=== PATIENT | female | born 1990 | race Hispanic/Latino ===

== ENCOUNTER 2020-02-14 14:09 | Emergency (ER) | payer OTHER ==
[2020-02-14 15:39] LABS: RAPID GROUP A STREP NEGATIVE (NEGATIVE)
[2020-02-14] MEDS ORDERED: NAPROXEN 500 MG TABLET ONE (16:29)
[2020-02-14] MEDS ORDERED: DIPHENHYDRAMINE HCL 25 MG CAPSULE ONE (16:30)
== END 2020-02-14 16:56 | disposition home or self-care (01) ==
LOC: EDH 14:09
DX: J06.9 Acute upper respiratory infection, unspecified (principal)
CPT/HCPCS: 81025; 87804 ×2; 87880; 99283; Q0163

== ENCOUNTER 2020-09-08 23:19 | Emergency (ER) | payer OTHER ==
[2020-09-08] MEDS ORDERED: SODIUM CHLORIDE 0.9% 1000ML 1,000 ML IV ONE (23:20)
[2020-09-08 23:56] LABS: APPEARANCE,URINE Clear (CLEAR); BILIRUBIN,URINE Negative (NEGATIVE); COLOR,URINE Yellow (YELLOW); GLUCOSE, URINE (UA) Negative (NEGATIVE); KETONES,URINE Negative (NEGATIVE); LEUKOCYTE ESTERASE ,URINE Negative (NEGATIVE); NITRATE,URINE Negative (NEGATIVE); OCCULT BLOOD,URINE Trace (NEGATIVE); PH,URINE 5.5 (5.0-8.0); PROTEIN,URINE Negative (NEGATIVE); UROBILINOGEN,URINE 0.2 mg/dL (0.2-1.0)
[2020-09-09 00:04] LABS: BACTERIA,URINE None Seen /HPF (None Seen); RBC,URINE 0-1 /HPF (0-1); SQUAMOUS EPITHELIAL CELL,UR Few /HPF (0-2); WBC,URINE None Seen /HPF (0-1)
[2020-09-09 00:14] LABS: HCG,QUAL RESULT NEGATIVE (NEGATIVE)
[2020-09-09] MEDS ORDERED: KETOROLAC TROMETHAMINE 30MG/ML ONE (00:42)
[2020-09-09] MEDS ORDERED: ONDANSETRON HCL 4 MG/2 ML VIAL ONE (00:42)
[2020-09-09 00:55] LABS: CREATININE 0.8 mg/dL (0.5-1.5); POTASSIUM 3.1 mmol/L (3.5-5.1)
[2020-09-09 01:00] LABS: ALBUMIN 3.3 g/dL (3.5-5.0); BILIRUBIN,TOTAL 0.3 mg/dL (0.2-1.0); TOTAL PROTEIN, SERUM 7.7 g/dL (6.0-8.3)
[2020-09-09 01:10] LABS: BASOPHILS % (AUTO) 0.1 % (0.0-5.0); EOSINOPHILS % (AUTO) 0.7 % (0.0-8.0); HEMATOCRIT 35.5 % (36-48); LYMPHOCYTES % (AUTO) 7.9 % (21.0-51.0); MEAN CORPUSCULAR HEMOGLOBIN 30.5 pg (27.0-33.0); MEAN CORPUSCULAR HGB CONC 35.5 g/dL (32.0-36.0); MONOCYTES % (AUTO) 4.2 % (3.0-13.0); NEUTROPHILS % (AUTO) 86.7 % (40.0-77.0); PLATELET COUNT (AUTO) 213 K/uL (130-400); RED BLOOD CELL COUNT(AUTO) 4.13 MIL/uL (4.00-5.50); RED CELL DISTRIBUTION WIDTH 12.8 % (11.0-15.5); WHITE BLOOD COUNT (AUTO) 7.2 K/uL (4.8-10.8)
[2020-09-09] MEDS ORDERED: POTASSIUM BICARB/CIT AC 25 MEQ TABLET.EFF ONE (01:57)
== END 2020-09-09 02:14 | disposition home or self-care (01) ==
LOC: EDH 23:19
DX: R10.11 Right upper quadrant pain (principal); R11.2 Nausea with vomiting, unspecified; R19.7 Diarrhea, unspecified; Z86.19 Personal history of other infectious and parasitic diseases
CPT/HCPCS: 36415; 76705; 80053; 81001; 81025; 83690; 85025; 96361; 96374; 96375; 99284; J1885; J2405; J7030

== ENCOUNTER 2020-09-10 10:44 | Observation (INO) | payer OTHER ==
[2020-09-10] VITALS (20 sets, daily range): BP systolic 96–130; BP diastolic 57–87
[2020-09-10] MEDS ORDERED: ONDANSETRON HCL 4 MG/2 ML VIAL ONE ×3 (11:12→13:27)
[2020-09-10] MEDS ORDERED: KETOROLAC TROMETHAMINE 30MG/ML ONE (11:12)
[2020-09-10 11:23] LABS: BASOPHILS % (AUTO) 0.2 % (0.0-5.0); EOSINOPHILS % (AUTO) 0.8 % (0.0-8.0); LYMPHOCYTES % (AUTO) 13.8 % (21.0-51.0); MEAN CORPUSCULAR HEMOGLOBIN 30.1 pg (27.0-33.0); MEAN CORPUSCULAR HGB CONC 34.6 g/dL (32.0-36.0); MEAN CORPUSCULAR VOLUME 87.1 fL (79-99); MONOCYTES % (AUTO) 6.3 % (3.0-13.0); NEUTROPHILS % (AUTO) 78.6 % (40.0-77.0); PLATELET COUNT (AUTO) 250 K/uL (130-400); RED BLOOD CELL COUNT(AUTO) 4.48 MIL/uL (4.00-5.50); RED CELL DISTRIBUTION WIDTH 13.2 % (11.0-15.5); WHITE BLOOD COUNT (AUTO) 6.2 K/uL (4.8-10.8)
[2020-09-10 11:39] LABS: CREATININE 0.9 mg/dL (0.5-1.5); POTASSIUM 3.8 mmol/L (3.5-5.1)
[2020-09-10 11:43] LABS: ALBUMIN 3.2 g/dL (3.5-5.0); BILIRUBIN,DIRECT 0.1 mg/dL (0.0-0.3); BILIRUBIN,TOTAL 0.4 mg/dL (0.2-1.0); TOTAL PROTEIN, SERUM 8.2 g/dL (6.0-8.3)
[2020-09-10 11:47] LABS: APPEARANCE,URINE Cloudy (CLEAR); BILIRUBIN,URINE Negative (NEGATIVE); COLOR,URINE Yellow (YELLOW); GLUCOSE, URINE (UA) Negative (NEGATIVE); KETONES,URINE Negative (NEGATIVE); LEUKOCYTE ESTERASE ,URINE Moderate (NEGATIVE); NITRATE,URINE Negative (NEGATIVE); OCCULT BLOOD,URINE Large (NEGATIVE); PH,URINE 5.5 (5.0-8.0); PROTEIN,URINE Negative (NEGATIVE); UROBILINOGEN,URINE 0.2 mg/dL (0.2-1.0)
[2020-09-10 11:48] LABS: HCG,QUAL RESULT NEGATIVE (NEGATIVE)
[2020-09-10 12:09] LABS: BACTERIA,URINE Moderate /HPF (None Seen)
[2020-09-10] MEDS ORDERED: MORPHINE SULFATE 4 MG/1ML SYG ONE (13:09)
[2020-09-10] MEDS ORDERED: SUCCINYLCHOLINE CHLORIDE 20 MG/ML 10 ML VIAL ONE (13:25)
[2020-09-10] MEDS ORDERED: LIDOCAINE PF 2% 5ML ABBOJECT ONE (13:25)
[2020-09-10] MEDS ORDERED: DEXAMETHASONE SOD PHOSPHATE 10MG/ML 1ML VIAL ONE ×2 (13:26→13:32)
[2020-09-10] MEDS ORDERED: PROPOFOL 10 MG/ML 20ML VIAL IV ONE (13:26)
[2020-09-10] MEDS ORDERED: GLYCOPYRROLATE 1 MG/5 ML SYRINGE ONE (13:26)
[2020-09-10] MEDS ORDERED: MIDAZOLAM HCL 1 MG/ML 2ML VIAL ONE (13:26)
[2020-09-10] MEDS ORDERED: FENTANYL CITRATE PF 50 MCG/1 ML 2ML VIAL ONE ×2 (13:27→14:07)
[2020-09-10] MEDS ORDERED: ROCURONIUM 10MG/1ML SYR 10 MG/ML ML ONE (13:27)
[2020-09-10] MEDS ORDERED: NEOSTIGMINE 5MG/5ML SYR IV ONE (13:27)
[2020-09-10] MEDS ORDERED: BUPIVACAINE/PF 0.5% 30ML VIAL ONE (13:52)
[2020-09-10] MEDS ORDERED: DEXTROSE 5%-WATER 1,000 ML IV SCH (14:00)
[2020-09-10] MEDS ORDERED: ACETAMINOPHEN 325 MG TAB PO PRN (14:00)
[2020-09-10] MEDS ORDERED: ONDANSETRON HCL 4 MG/2 ML VIAL IVP PRN (14:00)
[2020-09-10] MEDS ORDERED: ZOSYN 3.375GM+NS 50ML 50 ML IV ONE ×2 (14:21→19:55)
[2020-09-10] MEDS: MORPHINE SULFATE 2 MG/ML 1ML SYG IV PRN ×2 (15:30→20:36)
--- NOTE | 2020-09-10 19:30 | NUR ---
PM Assessment Received pt reported s/p Laparoscopic Appendectomy, on regular diet. Routine assessment done, plan of care discuss, pt made aware I will need to re-start her IV fluid D5W at 75cc/hr as ordered. I also made her aware that she is on IV ABX Zosyn. Pt encourage & explained the importance of ambulation to prevent any possible complication like ileus, agreed stated she will walk before going to sleep. Pt currently denies discomfort.
[2020-09-10] MEDS: ZOSYN 3.375GM+NS 50ML 50 ML IV SCH (20:20)
[2020-09-10] MEDS: FAMOTIDINE/PF 20 MG/2 ML VIAL IV SCH (20:20)
--- NOTE | 2020-09-10 20:30 | NUR ---
Re: Ambulation PT noted ambulating around the unit at this time independently.
[2020-09-11] VITALS: BP 124/74
[2020-09-11] MEDS: HYDROCODONE/ACETAMINOPHEN 5/325 MG TAB PO PRN ×2 (01:44→09:31)
[2020-09-11 04:00] VITALS: BP 122/82
[2020-09-11] MEDS: ZOSYN 3.375GM+NS 50ML 50 ML IV SCH (05:19)
[2020-09-11 08:00] VITALS: BP 119/76
[2020-09-11] MEDS: FAMOTIDINE/PF 20 MG/2 ML VIAL IV SCH (09:31)
[2020-09-11] MEDS ORDERED: DOCUSATE SODIUM 100 MG CAP PO ONE (11:19)
[2020-09-11 11:20] VITALS: BP 121/71
[2020-09-11] MEDS ORDERED: DOCUSATE SODIUM 100 MG CAP PO SCH (11:30)
== END 2020-09-11 15:00 | disposition home or self-care (01) ==
LOC: EDH 10:44 → EDHIP 12:10 → 4BH 16:40
PROVIDERS: ADMIT Specialist; ATTEND Specialist
DX: K35.80 Unspecified acute appendicitis (principal); R50.9 Fever, unspecified; R10.13 Epigastric pain
CPT/HCPCS: 36415; 44970; 74176; 80048; 80076; 81001; 81025; 83690; 85025; 87088; 88304; 96365; 96366 ×2; 96375 ×2; 96376 ×2; 99284; A4215; A4649 ×4; A4930; A6206; C1769 ×3; G0378 ×13; J0330; J1100 ×2; J1885; J2001; J2250; J2270; J2405 ×3; J2543 ×3; J2704; J2710; J3010 ×2; J3490 ×4; J7030; J7070 ×2; J7120; 96361